=== PATIENT | male | born 1995 | race Caucasian/White ===

== ENCOUNTER 2022-05-30 15:01 | Emergency (ER) | payer MEDICAID ==
[~2022-05-30] VITALS: Ht 177.8 cm; Wt 63.0 kg
[2022-05-30 15:05] VITALS: BP 128/80
[2022-05-30] MEDS ORDERED: LORAZEPAM 0.5MG TABLET PO ONE (15:30)
== END 2022-05-30 15:50 | disposition home or self-care (01) ==
LOC: ER 15:01
DX: F41.1 Generalized anxiety disorder (principal); F43.0 Acute stress reaction; F43.10 Post-traumatic stress disorder, unspecified
CPT/HCPCS: 99283